=== PATIENT | female | born 1960 | race Caucasian/White ===

== ENCOUNTER → 2016-10-17 | Outpatient (REF) ==
--- NOTE | 2016-10-17 14:14 | REP ---
LUMBOSACRAL SPINE: AP and lateral views of the lumbosacral spine performed. There is no compression fracture, with normal alignment and lumbar lordosis. There is mild spurring of L3 through L5. There is mild disc space narrowing at L3-4 and L4-5 and L5-S1. There is sclerosis with spurring at the posterior facet joints of L4-5 and L5-S1. The posterior elements are intact. IMPRESSION: Mild degenerative changes as above. Signed by Juan Daniel Howard MD 10/17/2016 05:40 P
--- NOTE | 2016-10-17 14:15 | REP ---
RIGHT KNEE, FIVE VIEWS: Five views of the right knee are performed. There is no acute fracture or dislocation. There is hypertrophic spurring of the fibular head. There is mild spurring of the medial tibial spine. The joint spaces are not significantly narrowed. I do not see a significant joint effusion. IMPRESSION: Hypertrophic spurring fibular head and medial tibial spine. Signed by Juan Daniel Howard MD 10/17/2016 05:40 P
== END ==
LOC: M SMT 12:14
PROVIDERS: ATTEND Internal Medicine
DX: M54.5 Low back pain (principal)